=== PATIENT | female | born 1980 | race Caucasian/White ===

== ENCOUNTER → 2017-01-09 | Outpatient (CLI) | payer BC ==
--- NOTE | 2017-01-09 08:20 | DX ---
Chest, PA Upright and Lateral Views January 09, 2017, at 7:33 a.m. Clinical History: 36-year-old female with a chronic cough for five months. ICD-10 Diagnostic Code: R05. Comparison Study: None. Findings: The cardiomediastinal silhouette size is normal. There is some perihilar bronchial wall thi ckening and evidence of mild left perihilar and right infrahilar infiltrates. There is no pleural eff usion, peripheral interstitial edema, or pneumothorax. The trachea is midline. The patient's arms obs cure a portion of the anterior retrosternal space on the lateral view. The osseous structures are age -appropriate. Impression: 1. Perihilar bronchitis. 2. Left perihilar and right infrahilar mild infiltrates.
== END ==
LOC: FIMAGING 07:33
PROVIDERS: ATTEND Family Medicine
DX: J40 Bronchitis, not specified as acute or chronic (principal); R91.8 Other nonspecific abnormal finding of lung field